=== PATIENT | male | born 1950 | race Caucasian/White ===

== ENCOUNTER 2016-09-03 21:48 | Emergency (ER) | payer MEDICARE, OTHER ==
[2016-09-03 22:11] VITALS: TEMP 98.6
[2016-09-03] MEDS ORDERED: SODIUM CHLORIDE 0.9% FLUSH 10 ML SOL IV PRN (22:12)
[2016-09-03 22:19] LABS: BASOPHILS % (AUTO) 1 % (0-3); EOSINOPHILS % (AUTO) 2 % (0-9); HEMATOCRIT 43 % (39-53); MEAN CORPUSCULAR HGB CONC 35.1 gm/dl (32.0-36.0); MEAN CORPUSCULAR VOLUME 89 fL (80-100); MONOCYTES % (AUTO) 6.2 % (0-12); NEUTROPHILS % (AUTO) 50.4 % (37-80)
[2016-09-03 22:34] LABS: ALBUMIN 3.7 gm/dl (3.4-5.0); CALCIUM 8.5 mg/dl (8.5-10.1); POTASSIUM 4.2 mMol/L (3.5-5.1)
[2016-09-03] MEDS ORDERED: BACITRACIN 500 U/GM OIN TOP ONE ×2 (23:21→23:29)
[2016-09-03] MEDS ORDERED: LIDOCAINE BUFFERED 1% 50 ML SOL SC ONE (23:21)
[2016-09-03] MEDS ORDERED: LIDOCAINE HCL 1% MDV SOL SC ONE (23:21)
[2016-09-03] MEDS ORDERED: LIDOCAINE HCL 1% MPF SOL ONE (23:22)
[2016-09-03] MEDS ORDERED: TDAP VACCINE 0.5 ML SUS IM ONE ×2 (23:56→23:57)
[2016-09-04 01:55] VITALS: BP 109/77; PULSE 70; RESP 21; O2SAT 94
== END 2016-09-04 00:05 | disposition home or self-care (01) | DRG 897 ==
LOC: ED 21:48
DX: F10.129 Alcohol abuse with intoxication, unspecified (principal); S61.012A Laceration without foreign body of left thumb without damage to nail, initial encounter; Y90.8 Blood alcohol level of 240 mg/100 ml or more
CPT/HCPCS: 12001; 80053; 80307; 85025; 85610; 85730; 90471; 90715; 93005; 99283; 99285; A6402; J2001